=== PATIENT | male | born 1990 | race Caucasian/White ===

== ENCOUNTER 2016-11-07 15:04 | Emergency (ER) | payer SELFPAY ==
--- NOTE | 2016-11-07 17:43 | RADIOLOGY REPORT (SQ) ---
EXAM DESCRIPTION: CT LUMBAR SPINE WITH COMPLETED DATE/TIME: 11/07/2016 5:14 pm REASON FOR STUDY: painful mass lumbar area COMPARISON: None. TECHNIQUE: Axial images acquired through the lumbar spine with intravenous contrast. Contrast dose: 75 cc Isovue 370 low osmolar contrast. Renal function: Not needed. Patient is less than 50 years old. Images reviewed with lung, soft tissue and bone windows. Reconstructed coronal and sagittal MPR imag es reviewed. All images stored on PACS. All CT scanners at this facility use dose modulation, iterative reconstruction, and/or weight based d osing when appropriate to reduce radiation dose to as low as reasonably achievable (ALARA). [facility]: Dose Right [facility]: CareDose [facility]: Dose Right [facility]: Teradose 4D [facility]: [employer] RADIATION DOSE: Total exam DLP: [id number].cm LIMITATIONS: The location of the lumbar masses not indicated. FINDINGS: SEGMENTATION: Normal. No transitional anatomy. ALIGNMENT: Mild levoscoliosis in the upper lumbar spine. VERTEBRAL BODIES: No fractures. No dislocation. No acute findings. DISCS: There is a shallow circumferential disc bulge at L3-4. There is no central canal or foraminal stenosis. Shallow circumferential disc bulge at L4-5. Once again, no central canal or foraminal st enosis PEDICLES, TRANSVERSE PROCESSES: No fractures. No dislocation. No acute findings. FACETS, POSTERIOR ELEMENTS: No fractures. No dislocation. No spinal stenosis. HARDWARE: None in the spine. VISUALIZED RIBS: No fractures. SOFT TISSUES: There is a 21 x 49 mm fairly well-circumscribed fairly homogeneous fat density lesion t here is definable within the subcutaneous fat on the left. This is best seen on image 78 series 4. This is seen on coronal and sagittal images as well. OTHER: No other significant finding. IMPRESSION: 1. Mild circumferential disc bulging at 2 levels as described. 2. Likely lipoma in the subcutaneous fat on the left. Follow-up as clinically indicated. TECHNICAL DOCUMENTATION: JOB ID: [id number] Quality ID # [id number]: Final reports with documentation of one or more dose reduction techniques (e.g., Au tomated exposure control, adjustment of the mA and/or kV according to patient size, use of iterative reconstruction technique) 2010 [employer]- All Rights Reserved
--- NOTE | 2016-11-07 18:31 | ER Document Report ---
ED General - General Chief Complaint: Rash Stated Complaint: BACK AND HIP PAIN Time Seen by Provider: 11/07/16 15:30 TRAVEL OUTSIDE OF THE [place] IN LAST 30 DAYS: No - Related Data Allergies/Adverse Reactions: No Known Allergies Allergy (Verified 11/07/16 15:12) Past Medical History - Social History Smoking Status: Never Smoker Chew tobacco use (# tins/day): No Frequency of alcohol use: Rare Drug Abuse: None Family History: Reviewed & Not Pertinent Patient has suicidal ideation: No Patient has homicidal ideation: No Renal/ Medical History: Denies: Hx Peritoneal Dialysis Surgical Hx: Negative - Immunizations Hx Diphtheria, Pertussis, Tetanus Vaccination: Yes Physical Exam - Vital signs Vitals: Temp Pulse Resp BP Pulse Ox 98.5 F 102 H 16 147/80 H 97 11/07/16 15:15 11/07/16 15:15 11/07/16 15:15 11/07/16 15:15 11/07/16 15:15 Course - Re-evaluation Re-evalutation: 11/07/16 18:28 CT showing bulging discs at 2 levels and a lipoma. all results reviewed with patient. no neurologic deficits or red flags identified. will treat pain with short Rx for percocet and ibuprofen. pt stable for discharge - Vital Signs Vital signs: Temp Pulse Resp BP Pulse Ox 98.5 F 102 H 16 147/80 H 97 11/07/16 15:15 11/07/16 15:15 11/07/16 15:15 11/07/16 15:15 11/07/16 15:15 Discharge - Discharge Clinical Impression: Bulging lumbar disc, Lipoma of back Back pain Qualifiers: Back pain location: low back pain Chronicity: acute Back pain laterality: midline Sciatica presence: without sciatica Qualified Code(s): M54.5 - Low back pain Instructions: Low Back Pain ([facility]), Ibuprofen (General) ([facility]), Oral Narcotic Medication ([facility]) Additional Instructions: Your CT is showing bulging discs at L3 and L4 and subcutaneous Lipoma please follow up with spinal specialist for further evaluation and treatment of your back pain please follow up with a surgeon for removal of the lipoma take pain medication sparingly motrin for inflammation Prescriptions: Ibuprofen [Motrin 800 Mg Tablet] 800 mg PO Q6H #20 tablet Oxycodone HCl/Acetaminophen [Percocet 5-325 mg Tablet] 1 tab PO ASDIR PRN #15 tab PRN Reason:
[2016-11-07 18:43] VITALS: BP 165/102
== END 2016-11-07 18:43 | disposition home or self-care (01) ==
LOC: ER 15:04
DX: D17.1 Benign lipomatous neoplasm of skin and subcutaneous tissue of trunk (principal); M51.26 Other intervertebral disc displacement, lumbar region; M54.5 Low back pain; R21 Rash and other nonspecific skin eruption; M54.9 Dorsalgia, unspecified; M25.559 Pain in unspecified hip
CPT/HCPCS: 72132; 99283

== ENCOUNTER → 2017-01-31 | Outpatient (CLI) | payer OTHER ==
--- NOTE | 2017-01-31 15:26 | RADIOLOGY REPORT (SQ) ---
EXAM DESCRIPTION: WRIST LEFT 3 VIEWS COMPLETED DATE/TIME: 01/31/2017 1:54 pm REASON FOR STUDY: LEFT WRIST SPRAIN (S63.502A) S63.502A UNSPECIFIED SPRAIN OF LEFT WRIST, INITIAL E NCOUNTER COMPARISON: None. NUMBER OF VIEWS: Three views. TECHNIQUE: AP, lateral, and oblique radiographic images acquired of the left wrist. LIMITATIONS: None. FINDINGS: MINERALIZATION: Normal. BONES: No acute fracture or dislocation. No worrisome bone lesions. Normal alignment. Negative ulnar variance. . JOINTS: No erosions. No bela-articular osteopenia. No chondrocalcinosis. SOFT TISSUES: No swelling. No calcifications. OTHER: No other significant finding. IMPRESSION: No acute fracture. Negative ulnar variance. TECHNICAL DOCUMENTATION: JOB ID: [id number] [employer]- All Rights Reserved
== END ==
LOC: RAD 13:36
PROVIDERS: ATTEND Family Medicine
DX: S63.502A Unspecified sprain of left wrist, initial encounter (principal); X58.XXXA Exposure to other specified factors, initial encounter

== ENCOUNTER → 2017-05-17 | Outpatient (CLI) | payer OTHER ==
--- NOTE | 2017-05-17 16:10 | RADIOLOGY REPORT (SQ) ---
EXAM DESCRIPTION: SHOULDER LEFT 2 OR MORE VIEWS COMPLETED DATE/TIME: 05/17/2017 3:52 pm REASON FOR STUDY: M54.2 M54.2 CERVICALGIA M25.512 PAIN IN LEFT SHOULDER COMPARISON: None. NUMBER OF VIEWS: Three views. TECHNIQUE: Internal rotation, external rotation, and Y view images acquired of the left shoulder. LIMITATIONS: None. FINDINGS: MINERALIZATION: Normal. BONES: No acute fracture or dislocation. No worrisome bone lesions. JOINTS: No dislocation. VISUALIZED LUNGS AND RIBS: No pneumothorax. No rib fracture. SOFT TISSUES: No radiopaque foreign body. OTHER: No other significant finding. IMPRESSION: NEGATIVE STUDY OF THE LEFT SHOULDER. NO RADIOGRAPHIC EVIDENCE OF ACUTE INJURY. TECHNICAL DOCUMENTATION: JOB ID: [id number] [employer]- All Rights Reserved Reading location - IP/workstation name: [email or web address]
--- NOTE | 2017-05-17 16:14 | RADIOLOGY REPORT (SQ) ---
EXAM DESCRIPTION: CERV SP 4 OR 5 VIEWS COMPLETED DATE/TIME: 05/17/2017 3:52 pm REASON FOR STUDY: M54.2 CERVICALGIA M25.512 PAIN IN LEFT SHOULDER M54.2 CERVICALGIA M25.512 PAIN I N LEFT SHOULDER COMPARISON: None. NUMBER OF VIEWS: Five views. TECHNIQUE: AP, lateral, obliques and odontoid radiographic images acquired of the cervical spine. LIMITATIONS: None. FINDINGS: MINERALIZATION: Normal. ALIGNMENT: Anatomic. VERTEBRAE: Vertebral bodies of normal height. DISCS: Small osteophytes. FORAMINA: Mild narrowing of the lower cervical foramina due to small osteophytes. LATERAL AND POSTERIOR ELEMENTS: Facets, lateral masses and spinous processes without significant find ings. HARDWARE: None in the spine. SOFT TISSUES: No masses or calcifications. Lung apices clear. OTHER: No other significant finding. IMPRESSION: MILD DEGENERATIVE DISC DISEASE. NO ACUTE FINDINGS. TECHNICAL DOCUMENTATION: JOB ID: [id number] [employer]- All Rights Reserved Reading location - IP/workstation name: [email or web address]
== END ==
LOC: RAD 15:25
PROVIDERS: ATTEND Family Medicine
DX: M54.2 Cervicalgia (principal); M25.512 Pain in left shoulder
CPT/HCPCS: 72050

== ENCOUNTER → 2017-06-08 | Outpatient (CLI) | payer OTHER ==
--- NOTE | 2017-06-09 14:35 | RADIOLOGY REPORT (SQ) ---
EXAM DESCRIPTION: MRI CERVICAL SPINE WITHOUT COMPLETED DATE/TIME: 06/08/2017 3:39 pm REASON FOR STUDY: CERVICAL DISC DEGENERATION M50.30 OTHER CERVICAL DISC DEGENERATION, UNSP CERVICAL REGIO COMPARISON: None. TECHNIQUE: Sagittal and Axial imaging includes T1, T2, STIR and gradient echo sequences. LIMITATIONS: None. FINDINGS: ALIGNMENT: Normal. VERTEBRAE: Intact. BONE MARROW: Normal. No marrow replacement or reactive changes. DISCS: Desiccation multiple levels. HARDWARE: None in the spine. CORD AND BASE OF BRAIN: Normal in size and signal intensity. SOFT TISSUES: No soft tissue masses. C1-C2: No significant spinal stenosis. C2-C3: No significant spinal stenosis or exit foraminal stenosis. C3-C4: No significant spinal stenosis or exit foraminal stenosis. C4-C5: Disc bulge. No significant spinal stenosis or exit foraminal stenosis. C5-C6: Cord contact due to central small disc protrusion. Uncovertebral arthropathy. Moderate neura l foraminal narrowing bilaterally. C6-C7: Mild spinal stenosis due to disc bulge and ligament thickening. Mild neural foraminal narrowi ng bilaterally. C7-T1: No significant spinal stenosis or exit foraminal stenosis. UPPER THORACIC: Incompletely imaged. No significant spinal stenosis or exit foraminal stenosis. OTHER: No other significant finding. IMPRESSION: Central disc herniation C5-6. TECHNICAL DOCUMENTATION: JOB ID: [id number] [employer]- All Rights Reserved Reading location - IP/workstation name: [email or web address]
== END ==
LOC: RAD 14:52
PROVIDERS: ATTEND Family Medicine
DX: M50.30 Other cervical disc degeneration, unspecified cervical region (principal)
CPT/HCPCS: 72141

== ENCOUNTER → 2017-10-09 | Outpatient (CLI) | payer OTHER ==
--- NOTE | 2017-10-10 09:01 | RADIOLOGY REPORT (SQ) ---
EXAM DESCRIPTION: MRI LUMBAR SPINE WITHOUT COMPLETED DATE/TIME: 10/09/2017 8:13 pm REASON FOR STUDY: R29.898 OT SYMPTOMS AND SIGNS INVOLVING THE MUSCULOSKELETAL SYSTEM R29.898 OT S YMPTOMS AND SIGNS INVOLVING THE MUSCULOSKELETAL COMPARISON: None. TECHNIQUE: Sagittal and Axial imaging includes T1, T2, STIR and gradient echo sequences. Coronal T2/ HASTE imaging. LIMITATIONS: None. FINDINGS: VISUALIZED UPPER ABDOMEN: Limited evaluation. No acute or suspicious findings suggested. SEGMENTATION: No transitional anatomy. The lowest well-developed disc space is labeled L5-S1. ALIGNMENT: Anatomic. VERTEBRAE: Intact. BONE MARROW: Normal. No marrow replacement or reactive changes. DISC SIGNAL: Normal. No significant abnormal signal or loss of height. POSTERIOR ELEMENTS: Generally intact. No pars defect evident. HARDWARE: None in the spine. CORD AND CONUS: Normal in size and signal intensity. Conus at the T12-L1 level. SOFT TISSUES: No aortic aneurysm seen. No bulky retroperitoneal adenopathy or mass. No paraspinal mas s or fluid. T12-L1: At the upper edge of the field of view. Mild bilateral facet hypertrophy is present with mi ld bilateral foraminal narrowing. L1-L2: No central stenosis. Bulky bilateral facet and ligament hypertrophy is present with mild bila teral foraminal narrowing. L2-L3: Minimal posterior disc bulge, bulky bilateral facet and ligament hypertrophy. No central sten osis. Mild bilateral inferior foraminal narrowing is present. L3-L4: Minimal posterior disc bulging, bulky bilateral facet and ligament hypertrophy. Mild bilater al inferior foraminal narrowing. L4-L5: Minimal posterior disc bulging, bulky bilateral facet and ligament hypertrophy. Mild bilatera l inferior foraminal narrowing. L5-S1: Minimal posterior disc bulging, bulky bilateral facet and ligament hypertrophy. Mild bilatera l inferior foraminal narrowing. SACRUM: Visualized upper sacrum intact. OTHER: No other significant findings. IMPRESSION: Multilevel facet arthropathy with ligamentum flavum thickening and mild bilateral neural foraminal narrowing. No disc protrusion/herniation or high-grade central or foraminal encroachment. TECHNICAL DOCUMENTATION: JOB ID: [id number] [employer]- All Rights Reserved Reading location - IP/workstation name: [email or web address]
== END ==
LOC: RAD 18:56
PROVIDERS: ATTEND Family Medicine
DX: M48.07 Spinal stenosis, lumbosacral region (principal); R29.898 Other symptoms and signs involving the musculoskeletal system
CPT/HCPCS: 72148

== ENCOUNTER 2018-06-21 12:22 | Emergency (ER) | payer SELFPAY ==
[2018-06-21 12:32] VITALS: BP 165/87
[2018-06-21] MEDS ORDERED: CEPHALEXIN 500 MG CAPSULE PO ONE (12:46)
[2018-06-21] MEDS ORDERED: SULFAMETHOXAZOLE/TRIMETHOPRIM 800-160 MG TABLET PO ONE (12:46)
--- NOTE | 2018-06-21 12:47 | ER Document Report ---
ED Skin Rash/Insect Bite/Abscs - General Chief Complaint: Abscess Stated Complaint: POSSIBLE CYST Time Seen by Provider: 06/21/18 12:40 Primary Care Provider: LIZET FRANCO MD [NO LOCAL MD] - Follow up in 3-5 days Mode of Arrival: Ambulatory Information source: Patient Notes: 27-year-old male presented to ED for a bull draining to the area behind his scrotum. He states is been there for several days. He states he was using alcohol and peroxide and scrub in the area and now his skin feels like a spike and off and it is becoming more painful. He states it was draining in the past. He states he has had these multiple times before. It is alert oriented respirations regular and unlabored speaking in full sentences. Patient does walk with a cane due to history of chronic back and joint pain TRAVEL OUTSIDE OF THE [place] IN LAST 30 DAYS: No - HPI Patient complains to provider of: Tender/swollen area Onset: Other - Several days Onset/Duration: Gradual, Worse Quality of pain: Pressure, Sharp Severity: Moderate Pain Level: 3 Skin Character: Abscess - It self drained Quality of rash: Painful Identify cause: No Exacerbated by: Sitting, Movement, Walking Relieved by: Denies Similar symptoms previously: Yes Recently seen / treated by doctor: No - Related Data Allergies/Adverse Reactions: No Known Allergies Allergy (Verified 06/21/18 12:25) Past Medical History - General Information source: Patient - Social History Smoking Status: Former Smoker Chew tobacco use (# tins/day): No Frequency of alcohol use: None Drug Abuse: Marijuana Lives with: Family Family History: Reviewed & Not Pertinent Patient has suicidal ideation: No Patient has homicidal ideation: No - Past Medical History Cardiac Medical History: Reports: None Pulmonary Medical History: Reports: None EENT Medical History: Reports: None Neurological Medical History: Reports: None Endocrine Medical History: Reports: None Renal/ Medical History: Reports: None Malignancy Medical History: Reports None GI Medical History: Reports: None Musculoskeletal Medical History: Reports Hx Arthritis, Reports Hx Musculoskeletal Deformity, Reports Hx Musculoskeletal Trauma Skin Medical History: Reports Hx Cellulitis, Reports Other - Lipomas Psychiatric Medical History: Reports: Hx Anxiety, Hx Post Traumatic Stress Disorder Traumatic Medical History: Reports: Hx Fractures - Arm Infectious Medical History: Reports: None Surgical Hx: Negative Past Surgical History: Reports: None - Immunizations Hx Diphtheria, Pertussis, Tetanus Vaccination: Yes Review of Systems - Review of Systems Constitutional: No symptoms reported EENT: No symptoms reported Cardiovascular: No symptoms reported Respiratory: No symptoms reported Gastrointestinal: No symptoms reported Genitourinary: No symptoms reported Male Genitourinary: No symptoms reported Musculoskeletal: No symptoms reported Skin: Lesions - Behind the scrotum Hematologic/Lymphatic: No symptoms reported Neurological/Psychological: No symptoms reported -: Yes All other systems reviewed and negative Physical Exam - Vital signs Vitals: Temp Pulse Resp BP Pulse Ox 98.3 F 118 H 18 165/87 H 97 06/21/18 12:30 06/21/18 12:30 06/21/18 12:30 06/21/18 12:30 06/21/18 12:30 Interpretation: Normal - General General appearance: Appears well, Alert - HEENT Head: Normocephalic, Atraumatic Eyes: Normal Pupils: PERRL - Respiratory Respiratory status: No respiratory distress Chest status: Nontender Breath sounds: Normal Chest palpation: Normal - Cardiovascular Rhythm: Regular Heart sounds: Normal auscultation Murmur: No - Abdominal Inspection: Normal Distension: No distension Bowel sounds: Normal Tenderness: Nontender Organomegaly: No organomegaly - Back Back: Normal, Nontender - Extremities General upper extremity: Normal inspection, Nontender, Normal color, Normal ROM, Normal temperature General lower extremity: Normal inspection, Nontender, Normal color, Normal ROM, Normal temperature, Normal weight bearing. No: Kimber's sign - Neurological Neuro grossly intact: Yes Cognition: Normal Orientation: AAOx4 Hinckley Coma Scale Eye Opening: Spontaneous Nisha Coma Scale Verbal: Oriented Hinckley Coma Scale Motor: Obeys Commands Nisha Coma Scale Total: 15 Speech: Normal Motor strength normal: LUE, RUE, LLE, RLE Sensory: Normal - Psychological Associated symptoms: Normal affect, Normal mood - Skin Skin Temperature: Warm Skin Moisture: Dry Skin Color: Normal Skin irregularity: Abscess - Self draining Location of irregularity: Other - Between the scrotum and the anus Character of irregularity: Erythematous Irregularity with: Swelling, Tenderness, Inflammation, Weeping Course - Re-evaluation Re-evalutation: 06/21/18 14:16 Patient instructed to use Epson salt bath and prescribed Bactrim and Keflex. Patient was given instructions to return to ED for any increase in pain or swelling. Patient verbalized understanding and agreement with treatment plan and patient was discharged home. - Vital Signs Vital signs: Temp Pulse Resp BP Pulse Ox 98.3 F 110 H 18 165/87 H 97 06/21/18 12:30 06/21/18 12:38 06/21/18 12:30 06/21/18 12:30 06/21/18 12:30 Discharge - Discharge Clinical Impression: Abscess of groin, right Condition: Stable Disposition: HOME, SELF-CARE Additional Instructions: ABSCESS: You have an abscess (boil). This a pus-forming infection, usually due to staph. Some boils may be left to drain on their own, but most require lancing. From the time the tender lump first appears, it may be three or four days before the abscess is ready to jered. Local heat and rest help at this stage of treatment. An antibiotic may prevent spread of the infection. Once the abscess is opened, packing may be placed into it. This is done so pus is not sealed inside by premature closure of the cavity. The packing will be removed at your follow-up visit or you may be advised to remove it yourself at home. Sometimes this packing must be replaced a few times during healing. The wound will heal with surprisingly little scar. Depending on the size and location of an abscess, healing can take one to four weeks. You may shower and wash the area around the incision site two or three times a day. Antibiotics may be prescribed, but are usually not necessary after an abscess has been drained. If you develop fever, chills, worsening pain, or increasing swelling in the area, call the doctor or return immediately. CEPHALEXIN: The antibiotic you've been prescribed is a member of the cephalosporin class. This type of antibiotic covers a wide variety of infections, including those of the skin, lungs, and urinary tract. It's useful for staph infections. This antibiotic is slightly similar to the penicillin family. In rare cases, a person who is allergic to penicillin will also be allergic to this medication. If you have had a severe allergic reaction to penicillin, and have not taken this antibiotic since that time, notify your doctor. Antibiotics which cover many germs ("broad spectrum" antibiotics) are more likely to cause diarrhea or "yeast" infections. Women prone to vaginal yeast problems may suffer an attack after taking this antibiotic. In infants, oral thrush (white spots "stuck" on the cheek) or yeast diaper rash may result. See your doctor if these problems occur. Call at once if you develop itching, hives, shortness of breath, or lightheadedness. TRIMETHOPRIM-SULFA: You have been given a prescription for trimethoprim-sulfa (TMS, Septra, Bactrim). This is a combination antibiotic of the sulfa class, often used for urinary tract infections, middle ear infections, bronchitis, shigella intestinal infection, and Pneumocystis pneumonia. TMS is usually well-tolerated. Occasional side effects include nausea and decreased appetite. Septra is not recommended for infants less than two months of age. Do not take this medication if you have experienced severe side effects or allergy to sulfa medicine. You should stop this medicine at once and contact your physician if you develop any rash, joint pain, shortness of breath, bruising, or jaundice (yellow color in the skin), or if you develop any other new or unusual symptoms. Epsom Salt Soaks Soak the wound area in a container of warm epsom salt water. If you can't get the wound area into a bucket or romo, use a folded towel soaked in the epsom salt solution and apply to the area. Use clean hot tap water (about the temperature of a very warm bath), mixing in about one (1) teaspoon for every pint of water. Two gallon --> 16 teaspoons Epsom Salts One gallon --> 8 teaspoons Epsom Salts Two quarts --> 4 teaspoons Epsom Salts One quart --> 2 teaspoons Epsom Salts Soak the wound for about 20 minutes while gently moving it around in the water. Repeat this four (4) times a day. FOLLOW-UP CARE: Most simple abscesses will not require a follow up visit. If you had packing placed in the abscess, remove it as instructed by the physician. If you have been referred to a physician for follow-up care, call the physicians office for an appointment as you were instructed or within the next two days. If you experience worsening or a significant change in your symptoms, return to the Emergency Department at any time for re-evaluation. Prescriptions: Cephalexin Monohydrate [Keflex 500 mg Capsule] 500 mg PO Q6H 5 Days capsule Sulfamethoxazole/Trimethoprim [Bactrim Ds Tablet] 1 each PO BID #20 tablet Referrals: LIZET FRANCO MD [NO LOCAL MD] - Follow up in 3-5 days
== END 2018-06-21 12:53 | disposition home or self-care (01) ==
LOC: ER 12:22
DX: L02.214 Cutaneous abscess of groin (principal); Z87.891 Personal history of nicotine dependence
CPT/HCPCS: 99282

== ENCOUNTER → 2018-12-23 | Outpatient (CLI) | payer MEDICAID ==
--- NOTE | 2018-12-23 14:33 | RADIOLOGY REPORT (SQ) ---
EXAM DESCRIPTION: L SPINE WHOLE COMPLETED DATE/TIME: 12/23/2018 1:39 pm REASON FOR STUDY: M54.5 LOW BACK PAIN M54.5 LOW BACK PAIN M54.2 CERVICALGIA COMPARISON: None. NUMBER OF VIEWS: Five views including obliques. TECHNIQUE: AP, lateral, oblique, and sacral radiographic images acquired of the lumbar spine. LIMITATIONS: None. FINDINGS: MINERALIZATION: Normal. SEGMENTATION: Normal. No transitional anatomy. ALIGNMENT: Minimal levoscoliosis. VERTEBRAE: Maintained height. No fracture or worrisome bone lesion. DISCS: Preserved height. No significant osteophytes or end plate irregularity. POSTERIOR ELEMENTS: Mild hypertrophic facet changes at L5-S1. HARDWARE: None in the spine. PARASPINAL SOFT TISSUES: Normal. PELVIS: Intact as visualized. No fractures or worrisome bone lesions. SI joints intact. OTHER: No other significant finding. IMPRESSION: Minimal scoliosis. Facet arthropathy. No acute finding. TECHNICAL DOCUMENTATION: JOB ID: [id number] [employer]- All Rights Reserved Reading location - IP/workstation name: [email or web address]
--- NOTE | 2018-12-23 14:36 | RADIOLOGY REPORT (SQ) ---
EXAM DESCRIPTION: CERV SP 4 OR 5 VIEWS COMPLETED DATE/TIME: 12/23/2018 1:39 pm REASON FOR STUDY: M54.2 CERVICALGIA M54.5 LOW BACK PAIN M54.2 CERVICALGIA COMPARISON: None. NUMBER OF VIEWS: Five views. TECHNIQUE: AP, lateral, obliques and odontoid radiographic images acquired of the cervical spine. LIMITATIONS: None. FINDINGS: MINERALIZATION: Normal. ALIGNMENT: Anatomic. VERTEBRAE: Vertebral bodies of normal height. DISCS: Disc spaces are maintained. Anterior osteophytes are present at C3, C4, C5, and C6. FORAMINA: No osteophytes or foraminal narrowing. LATERAL AND POSTERIOR ELEMENTS: Facets, lateral masses and spinous processes without significant find ings. HARDWARE: None in the spine. SOFT TISSUES: No masses or calcifications. Lung apices clear. OTHER: No other significant finding. IMPRESSION: Spondylosis. No acute finding. TECHNICAL DOCUMENTATION: JOB ID: [id number] [employer]- All Rights Reserved Reading location - IP/workstation name: [email or web address]
== END ==
LOC: RAD 12:20
PROVIDERS: ATTEND Family Medicine
DX: M54.5 Low back pain (principal); M54.2 Cervicalgia
CPT/HCPCS: 72050; 72110

== ENCOUNTER → 2019-05-04 | Outpatient (CLI) | payer MEDICARE, MEDICAID ==
--- NOTE | 2019-05-04 17:49 | EKG REPORT ---
SEVERITY:- OTHERWISE NORMAL ECG - SINUS TACHYCARDIA : Confirmed by: Thong Perez MD 04-May-2019 17:48:45
== END ==
LOC: OD 15:25
PROVIDERS: ATTEND Surgery
DX: R94.31 Abnormal electrocardiogram [ECG] [EKG] (principal)
CPT/HCPCS: 93005; 93010

== ENCOUNTER 2019-05-08 11:30 | Day surgery (SDC) | payer MEDICARE, MEDICAID ==
[2019-05-01 08:43] LABS: HEMATOCRIT 43.5 % (37.9-51.0); HEMOGLOBIN 15.3 g/dL (13.5-17.0); MEAN CORPUSCULAR HEMOGLOBIN 28.8 pg (27.0-33.4); MEAN CORPUSCULAR HGB CONC 35.3 g/dL (32.0-36.0); MEAN CORPUSCULAR VOLUME 82 fl (80-97); PLATELET COUNT 246 10^3/uL (150-450); RED BLOOD COUNT 5.33 10^6/uL (4.35-5.55); RED CELL DISTRIBUTION WIDTH 14.4 % (11.5-14.0); WHITE BLOOD COUNT 8.8 10^3/uL (4.0-10.5)
[2019-05-01 09:02] LABS: ANION GAP 11 (5-19); BLOOD UREA NITROGEN 11 mg/dL (7-20); CALCIUM 9.4 mg/dL (8.4-10.2); CARBON DIOXIDE 24 mmol/L (22-30); CHLORIDE 105 mmol/L (98-107); GLUCOSE 173 mg/dL (75-110); POTASSIUM 4.3 mmol/L (3.6-5.0)
--- NOTE | 2019-05-01 09:29 | RADIOLOGY REPORT (SQ) ---
EXAM DESCRIPTION: CHEST PA/LATERAL COMPLETED DATE/TIME: 05/01/2019 9:13 am REASON FOR STUDY: PRE-OP, excision of low back lipoma COMPARISON: None. EXAM PARAMETERS: NUMBER OF VIEWS: two views TECHNIQUE: Digital Frontal and Lateral radiographic views of the chest acquired. RADIATION DOSE: NA LIMITATIONS: none FINDINGS: LUNGS AND PLEURA: No opacities, masses or pneumothorax. No pleural effusion. MEDIASTINUM AND HILAR STRUCTURES: No masses or contour abnormalities. HEART AND VASCULAR STRUCTURES: Heart normal size. No evidence for failure. BONES: No acute findings. Multilevel thoracic spondylosis. HARDWARE: None in the chest. OTHER: No other significant finding. IMPRESSION: NO SIGNIFICANT RADIOGRAPHIC FINDING IN THE CHEST. TECHNICAL DOCUMENTATION: JOB ID: [id number] 2010 [employer]- All Rights Reserved Reading location - IP/workstation name: [email or web address]
--- NOTE | 2019-05-01 13:54 | EKG REPORT ---
SEVERITY:- ABNORMAL ECG - ATRIAL FLUTTER/FIBRILLATION, A-RATE 309 : Confirmed by: Yoly Woodruff MD 01-May-2019 13:53:22
[~2019-05-08 11:30] MED LIST: ACETAMINOPHEN 1,000 MG/100 ML RTUPB IV PRN; BUPIVACAINE HCL 0.25 % INJ/PF (2.5 MG/1 ML) 30 ML VIAL ONE; CEFAZOLIN SODIUM 2 GM in DEXTROSE 5%-WATER 100 ML IV PRN; DEXAMETHASONE SOD PHOSPHATE INJ 4 MG/1 ML VIAL ONE; FENTANYL CITRATE INJ/PF 100 MCG/2 ML AMPUL ONE; IBUPROFEN 800 MG in NORMAL SALINE 250 ML IV PRN; LACTATED RINGERS 1000 ML IV PRN; LIDOCAINE 0.5% INJ-PF (5 MG/ML) 50 ML SDV SUBCUT PRN; MIDAZOLAM 2 MG/2 ML INJ ONE; ONDANSETRON HCL INJ/PF 4 MG/2 ML SDV ONE; PROPOFOL INJ 200 MG/20 ML VIAL IV ONE
[2019-05-08] MEDS ORDERED: BUPIVACAINE HCL 0.5 % INJ/PF 30 ML SDV ONE (12:31)
[2019-05-08] MEDS ORDERED: LIDOCAINE 1% INJ-PF (10 MG/ML) 30 ML SDV ONE ×2 (12:31→13:03)
[2019-05-08] MEDS ORDERED: DIPHENHYDRAMINE HCL 50 MG/ML VIAL IV PRN (14:05)
[2019-05-08] MEDS ORDERED: FENTANYL CITRATE INJ/PF 100 MCG/2 ML AMPUL IV PRN ×3 (14:05)
[2019-05-08] MEDS ORDERED: PROMETHAZINE HCL INJ 25 MG/1 ML VIAL IV PRN ×2 (14:05)
[2019-05-08] MEDS ORDERED: MEPERIDINE HCL/PF INJ 25 MG/1 ML DISP.SYRIN IV PRN (14:05)
[2019-05-08] MEDS ORDERED: ONDANSETRON HCL INJ/PF 4 MG/2 ML SDV IV PRN (14:05)
[2019-05-08] MEDS ORDERED: MORPHINE SULFATE 10 MG/ML INJ IV PRN (14:05)
--- NOTE | 2019-05-08 15:18 | Discharge Summary ---
Discharge Summary (SDC) - Discharge Final Diagnosis: Bilateral lower back lipomas Date of Surgery: 05/08/19 Discharge Date: 05/08/19 Condition: Stable Treatment or Instructions: Discharge home. Diet as tolerated. Activity as tolerated. No swimming pools or tub baths x2 weeks. Okay to shower starting Saturday. [place] 5/325 mg p.o. every 6 hours PRN for pain. Prescriptions: Hydrocodone/Acetaminophen [[place] 5-325 mg Tablet] 1 tab PO Q6HP PRN #20 tablet PRN Reason: Referrals: ELVIA TONEY DO [Primary Care Provider] - Discharge Diet: As Tolerated Respiratory Treatments at Home: Deep Breathing/Coughing, Incentive Spirometer Discharge Activity: Activity As Tolerated, Balance Activity w/Rest Home Care Assistance: None Needed Report the Following to Your Physician Immediately: Shortness of Breath, Nausea, Vomiting, Increase in Pain, Fever over 101 Degrees, Unusual Bleeding, Redness
[2019-05-08] MEDS: HYDROCODONE/ACETAMINOPHEN 5-325 MG TABLET ONE (16:10)
[2019-05-08] MEDS ORDERED: HYDROCODONE/ACETAMINOPHEN 5-325 MG TABLET PO PRN (16:47)
[2019-05-08 17:55] VITALS: BP 136/79
--- NOTE | 2019-05-12 12:08 | Operative Report ---
Nonrecallable Operative Report DATE OF SURGERY: 05/08/19 PREOPERATIVE DIAGNOSIS: Bilateral lower back lipomas POSTOPERATIVE DIAGNOSIS: Same as above OPERATION: 1. Excision of a 15 cm right lower back lipoma. 2. Intermediate closure of a 10 cm right back incision. 3. Excision of an 11 cm left lower back lipoma. 4. Intermediate closure of a 9 cm left lower back incision. SURGEON: BREN PENA ANESTHESIA: LMAC TISSUE REMOVED OR ALTERED: 1. 15 cm right lower back lipoma. 2. 11 cm left back lipoma COMPLICATIONS: None apparent ESTIMATED BLOOD LOSS: Minimal PROCEDURE: Drains/implants: None. Procedure in detail: After informed consent was obtained, the patient was brought to the operating room and laid in the right lateral decubitus position. The patient had a right lower back and a left lower back lipoma present. An incision was created over the lipoma. Dissection was carried through the subcutaneous tissues using a mixture of sharp dissection, blunt dissection, and electrocautery. The right lower back lipoma was removed in its entirety. It was approximately 15 cm in total diameter. After the mass was removed, hemostasis was achieved using electrocautery. Next, the subcutaneous tissues were closed using 3-0 Vicryl suture in simple running fashion. The overlying skin was closed using 4-0 Vicryl Rapide suture in subcuticular fashion. Attention was then turned to the left lower back. The left lower back lipoma was then excised using sharp dissection, blunt dissection, and electrocautery. The left lower back lipoma was removed and measured on the back table. It was 11 cm in maximal diameter. The 9 cm left lower back incision was then closed in layers. Subcutaneous tissues were closed using 3-0 Vicryl suture in simple running fashion. The overlying skin was closed using 4-0 Vicryl Rapide suture in subcuticular fashion. Dressings were placed, and the procedure was concluded. All sponge, instrument, and needle counts were correct x2. Condition: Stable.
== END 2019-05-08 17:23 | disposition home or self-care (01) ==
LOC: OROUT 11:30
PROVIDERS: ATTEND Surgery
DX: D17.1 Benign lipomatous neoplasm of skin and subcutaneous tissue of trunk (principal); Z79.899 Other long term (current) drug therapy; Z87.891 Personal history of nicotine dependence; E66.9 Obesity, unspecified
CPT/HCPCS: 93005; 36415; 85027; 80048; 88305 ×2; 71046; 93010; 21931; J2250; J0690; J1100; J3010; J3490; J2405; J7060; J7050; J2704; A9270; J1741; 300

== ENCOUNTER 2019-06-17 14:11 | Emergency (ER) | payer MEDICARE, MEDICAID ==
[2019-06-17] MEDS ORDERED: NORMAL SALINE 1000 ML 1,000 ML IV ONE (14:24)
--- NOTE | 2019-06-17 14:24 | ER Document Report ---
ED Medical Screen (RME) - General Chief Complaint: Skin Problem Stated Complaint: POST OF COMPLICATIONS Time Seen by Provider: 06/17/19 14:19 Primary Care Provider: ELVIA TONEY DO [Primary Care Provider] - Follow up as needed Mode of Arrival: Wheelchair Information source: Patient Notes: 28-year-old male patient presents emergency department chief complaint of fever, chills and swelling to his right lower back. Patient reports he had a lipoma removed from this area and is having increased swelling and pain. His surgery was in early May. He states he started having fevers 2 days ago. 2 incision lines noted to lower back, the one on the left is unremarkable, the one on the right has obvious swelling to it. No obvious drainage noted. I have greeted and performed a rapid initial assessment of this patient. A comprehensive ED assessment and evaluation of the patient, analysis of test results and completion of the medical decision making process will be conducted by additional ED providers. I have specifically instructed the patient or family members with the patient to immediately return to any nursing staff should anything change in the patient's condition or with their chief complaint. TRAVEL OUTSIDE OF THE [place] IN LAST 30 DAYS: No - Related Data Allergies/Adverse Reactions: gabapentin Adverse Reaction (Verified 05/08/19 12:40) MUSCLE SPASMS Past Medical History - Social History Chew tobacco use (# tins/day): No Frequency of alcohol use: None Drug Abuse: None - Past Medical History Cardiac Medical History: Denies: Hx Coronary Artery Disease, Hx Heart Attack, Hx Hypertension Pulmonary Medical History: Denies: Hx Asthma, Hx Bronchitis, Hx COPD, Hx Pneumonia Neurological Medical History: Denies: Hx Cerebrovascular Accident, Hx Seizures Renal/ Medical History: Denies: Hx Peritoneal Dialysis Musculoskeltal Medical History: Reports Hx Arthritis, Reports Hx Musculoskeletal Deformity, Reports Hx Musculoskeletal Trauma Skin Medical History: Reports Hx Cellulitis Psychiatric Medical History: Reports: Hx Anxiety, Hx Post Traumatic Stress Disorder Traumatic Medical History: Reports: Hx Fractures - Arm - Immunizations Hx Diphtheria, Pertussis, Tetanus Vaccination: Yes Physical Exam - Vital signs Vitals: Temp Pulse Resp BP Pulse Ox 99.5 F 124 H 20 149/98 H 98 06/17/19 14:17 06/17/19 14:17 06/17/19 14:17 06/17/19 14:17 06/17/19 14:17 Course - Vital Signs Vital signs: Temp Pulse Resp BP Pulse Ox 99.5 F 124 H 20 149/98 H 98 06/17/19 14:17 06/17/19 14:17 06/17/19 14:17 06/17/19 14:17 06/17/19 14:17 Doctor's Discharge - Discharge Referrals: ELVIA TONEY DO [Primary Care Provider] - Follow up as needed
[2019-06-17] MEDS ORDERED: ACETAMINOPHEN 325 MG TABLET PO ONE (14:52)
[2019-06-17 14:55] LABS: ABSOLUTE BASOPHILS # (AUTO) 0.1 10^3/uL (0.0-0.2); ABSOLUTE EOSINOPHILS # (AUTO) 0.4 10^3/uL (0.0-0.6); ABSOLUTE LYMPHOCYTES (AUTO) 2.5 10^3/uL (0.5-4.7); ABSOLUTE MONOCYTES (AUTO) 1.7 10^3/uL (0.1-1.4); ABSOLUTE NEUT (AUTO) 9.8 10^3/uL (1.7-8.2); EOSINOPHILS % (AUTO) 2.8 % (0-6); HEMATOCRIT 43.2 % (37.9-51.0); HEMOGLOBIN 15.1 g/dL (13.5-17.0); LYMPHOCYTES % (AUTO) 17.4 % (13-45); MEAN CORPUSCULAR HEMOGLOBIN 28.1 pg (27.0-33.4); MEAN CORPUSCULAR HGB CONC 35.1 g/dL (32.0-36.0); MEAN CORPUSCULAR VOLUME 80 fl (80-97); MONOCYTES % (AUTO) 11.6 % (3-13); PLATELET COUNT 243 10^3/uL (150-450); RED BLOOD COUNT 5.38 10^6/uL (4.35-5.55); RED CELL DISTRIBUTION WIDTH 14.7 % (11.5-14.0); SEGMENTED NEUTROPHILS % (AUTO) 67.2 % (42-78); TOTAL CELLS COUNTED % (AUTO) 100 %; WHITE BLOOD COUNT 14.6 10^3/uL (4.0-10.5)
[2019-06-17 15:12] LABS: ALBUMIN 4.3 g/dL (3.5-5.0); ALKALINE PHOSPHATASE 64 U/L (38-126); ANION GAP 10 (5-19); ASPARTATE AMINO TRANSFERASE 30 U/L (17-59); BILIRUBIN,TOTAL 1.4 mg/dL (0.2-1.3); BLOOD UREA NITROGEN 9 mg/dL (7-20); CALCIUM 9.1 mg/dL (8.4-10.2); CARBON DIOXIDE 22 mmol/L (22-30); CHLORIDE 104 mmol/L (98-107); GLUCOSE 97 mg/dL (75-110); POTASSIUM 3.8 mmol/L (3.6-5.0)
--- NOTE | 2019-06-17 15:19 | ER Document Report ---
Entered by CHRISTIAN ANGELES SCRIBE 06/17/19 0091 Acting as scribe for:JANIA PRICE DO ED General - General Chief Complaint: Skin Problem Stated Complaint: POST OF COMPLICATIONS Time Seen by Provider: 06/17/19 14:19 Primary Care Provider: BREN RICHARDSON MD [ACTIVE STAFF] - Follow up as needed ELVIA TONEY DO [Primary Care Provider] - Follow up as needed Mode of Arrival: Wheelchair Information source: Patient Notes: This 28-year-old male presents to the emergency department complaining of tenderness and pain in his right lower back incision. Patient explains that he had 5 lipomas removed from his lower back on May 07. Patient states that he has been having follow-up appointments with his physician. Patient states that h is last appointment was two days ago when they drained his left lower back incision. Patient explained the following night, he sweat in his sleep and noticed the next morning drainage from his right side bandage. Patient stated that when he took off the bandage, "it was like a wax strip and pulled my skin off". Patient said that since his surgery, he has had no sensation near his incision sight but felt significant pain after taking off the bandage yesterday. Patient said that he felt "heat across entire body". Patient had fevers and chills at this time. Patient reports headache. TRAVEL OUTSIDE OF THE [place] IN LAST 30 DAYS: No - Related Data Allergies/Adverse Reactions: gabapentin Adverse Reaction (Verified 05/08/19 12:40) MUSCLE SPASMS Past Medical History - General Information source: Patient - Social History Smoking Status: Former Smoker Cigarette use (# per day): No Chew tobacco use (# tins/day): No Frequency of alcohol use: None Drug Abuse: None Family History: Reviewed & Not Pertinent Patient has suicidal ideation: No Patient has homicidal ideation: No Musculoskeletal Medical History: Reports Hx Arthritis, Reports Hx Musculoskeletal Deformity, Reports Hx Musculoskeletal Trauma Skin Medical History: Reports Hx Cellulitis Psychiatric Medical History: Reports: Hx Anxiety, Hx Post Traumatic Stress Disorder Traumatic Medical History: Reports: Hx Fractures - Arm Past Surgical History: Reports: Other - 5 lipomas removed May 2019. - Immunizations Hx Diphtheria, Pertussis, Tetanus Vaccination: Yes Review of Systems - Review of Systems Constitutional: See HPI, Chills, Fever EENT: No symptoms reported Cardiovascular: No symptoms reported Respiratory: No symptoms reported Gastrointestinal: No symptoms reported Genitourinary: No symptoms reported Male Genitourinary: No symptoms reported Musculoskeletal: See HPI, Back pain Skin: See HPI, Change in color Hematologic/Lymphatic: No symptoms reported Neurological/Psychological: See HPI, Headaches -: Yes All other systems reviewed and negative Physical Exam - Vital signs Vitals: Temp Pulse Resp BP Pulse Ox 99.5 F 124 H 20 149/98 H 98 06/17/19 14:17 06/17/19 14:17 06/17/19 14:17 06/17/19 14:17 06/17/19 14:17 - Notes Notes: Physical Exam: General: Alert, appears well. HEENT: Normocephalic. Atraumatic. PERRL. Extraocular movements intact. Oropharynx clear. Neck: Supple. Non-tender. Respiratory: No respiratory distress. Clear and equal breath sounds bilaterally. Cardiovascular: Regular rate and rhythm. Abdominal: Normal Inspection. Non-tender. No distension. Normal Bowel Sounds. Back: Soft tissue swelling on right lower back with mild warmth to touch that is superior to the incision. Right incision is about 12cm and tender to touch. Left incision is non-tender and appears to be healing well. Extremities: Moves all four extremities. Upper extremities: Normal inspection. Normal ROM. Lower extremities: Normal inspection. No edema. Normal ROM. Neurological: Normal cognition. AAOx4. Normal speech. Psychological: Normal affect. Normal Mood. Skin: Warm. Dry. Normal color. see back comment. Course - Re-evaluation Re-evalutation: 06/17/19 16:31 MDM Pleasant 28 year old with right sided lipoma removal just over a month ago. Over the last day fever chills and drainage from right sided wound. Dr. Angeles is well informed on the pt and has come to see him in the Ed. He openned and drained some thick material from the right side and placed some packing and will see him in follow up 06/21. - Vital Signs Vital signs: Temp Pulse Resp BP Pulse Ox 99.3 F 124 H 18 165/90 H 97 06/17/19 16:00 06/17/19 14:17 06/17/19 16:00 06/17/19 15:00 06/17/19 16:00 - Laboratory Result Diagrams: 06/17/19 14:30 06/17/19 14:30 Laboratory results interpreted by me: 06/17/19 06/17/19 14:30 14:30 WBC 14.6 H RDW 14.7 H Absolute Neuts (auto) 9.8 H Absolute Monos (auto) 1.7 H Sodium 135.6 L Total Bilirubin 1.4 H Discharge - Discharge Clinical Impression: Abscess Condition: Good Disposition: HOME, SELF-CARE Instructions: Abscess ([facility]), Post Incision and Drainage, Trimethoprim-Sulfa ([facility]) Additional Instructions: Keep your follow up with Dr. Richardson 06/21. Take your medicine as directed. Tylenol or ibuprofen for pain/ fever. Please return here for problems or concerns including but not limited to increasing pain, fever not controlled by the medicine or other concerns. Your blood pressure was elevated a bit here. Be sure and have it rechecked. Forms: Elevated Blood Pressure Referrals: ELVIA TONEY DO [Primary Care Provider] - Follow up as needed BREN RICHARDSON MD [ACTIVE STAFF] - Follow up as needed I personally performed the services described in the documentation, reviewed and edited the documentation which was dictated to the scribe in my presence, and it accurately records my words and actions.
[2019-06-17 15:39] VITALS: BP 165/90
[2019-06-17] MEDS ORDERED: LIDOCAINE 1% INJ (10 MG/ML) 10 ML MDV INJ ONE (15:40)
[2019-06-17] MEDS ORDERED: HYDROMORPHONE HCL INJ/PF 2 MG/ML AMPULE IV ONE (15:41)
--- NOTE | 2019-06-17 15:42 | RADIOLOGY REPORT (SQ) ---
EXAM DESCRIPTION: CHEST SINGLE VIEW IMAGES COMPLETED DATE/TIME: 06/17/2019 3:21 pm REASON FOR STUDY: cough COMPARISON: 05/01/2019 EXAM PARAMETERS: NUMBER OF VIEWS: One view. TECHNIQUE: Single frontal radiographic view of the chest acquired. RADIATION DOSE: NA LIMITATIONS: None. FINDINGS: LUNGS AND PLEURA: No opacities, masses or pneumothorax. No pleural effusion. MEDIASTINUM AND HILAR STRUCTURES: No masses. Contour normal. HEART AND VASCULAR STRUCTURES: Heart normal in size. Normal vasculature. BONES: No acute findings. HARDWARE: None in the chest. OTHER: No other significant finding. IMPRESSION: NO ACUTE RADIOGRAPHIC FINDING IN THE CHEST. TECHNICAL DOCUMENTATION: JOB ID: [id number] 2010 [email or web address]- All Rights Reserved Reading location - IP/workstation name: [email or web address]
[2019-06-17] MEDS ORDERED: HYDROCODONE/ACETAMINOPHEN 5-325 MG (6 TAB/ER DISP) PO PRN (16:36)
--- NOTE | 2019-06-18 06:30 | PDOC CONSULTATION ---
Consultation Consult Date: 06/17/19 Provider Consulted: SURGICAL SURGICALIST MD Consult reason:: infected seroma History of Present Illness Admission Date/PCP: ELVIA TONEY DO Patient complains of: Fevers, chills, pain at previous surgical site. History of Present Illness: DOMONIQUE TATE is a 28 year old male seen in consultation at the request of the emergency room physician. This is a patient who had large lipomas removed from his bilateral lower back. The patient has been undergoing repeated aspirations in the office for seromas. The last aspiration that occurred was approximately 1 week ago. Since that time, the patient's pain and swelling have worsened. He reports of 102 F fever at home last night. He denies chest pain, shortness of breath, nausea, vomiting, abdominal pain, melena, hematochezia, hematemesis, dizziness. He does report headache, fevers, chills, fatigue, malaise, and back pain. Past Medical History Cardiac Medical History: Denies: Coronary Artery Disease, Myocardial Infarction, Hypertension Pulmonary Medical History: Denies: Asthma, Bronchitis, Chronic Obstructive Pulmonary Disease (COPD), Pneumonia Neurological Medical History: Denies: Seizures Musculoskeltal Medical History: Reports: Arthritis Psychiatric Medical History: Reports: Post Traumatic Stress Disorder Hematology: Denies: Anemia Past Surgical History Past Surgical History: Reports: Other - 2 lipomas removed May 2019. Social History Smoking Status: Former Smoker Electronic Cigarette use?: No Family History Family History: Reviewed & Not Pertinent Parental Family History Reviewed: Yes Children Family History Reviewed: Yes Sibling(s) Family History Reviewed.: Yes Medication/Allergy Home Medications: Cyclobenzaprine HCl [Flexeril 10 mg Tablet] 1 tab PO TID PRN 05/01/19 Meloxicam [Mobic] 1 tab PO DAILY 05/01/19 Hydrocodone/Acetaminophen [[place] 5-325 mg Tablet] 1 tab PO Q6HP PRN #20 tablet 05/08/19 Sulfamethoxazole/Trimethoprim [Bactrim Ds Tablet] 1 each PO BID #20 tablet 06/17/19 Allergies/Adverse Reactions: gabapentin Adverse Reaction (Verified 05/08/19 12:40) MUSCLE SPASMS Review of Systems Constitutional: PRESENT: chills, fever(s), headache(s). ABSENT: weakness Eyes: ABSENT: visual disturbances Ears: ABSENT: hearing changes Nose, Mouth, and Throat: ABSENT: sore throat Cardiovascular: ABSENT: chest pain Respiratory: ABSENT: cough, dyspnea Gastrointestinal: ABSENT: abdominal pain, hematemesis, hematochezia, melena, nausea, vomiting Genitourinary: ABSENT: dysuria Musculoskeletal: PRESENT: back pain Integumentary: PRESENT: erythema. ABSENT: pruritus Neurological: ABSENT: confusion, convulsions, dizziness Psychiatric: ABSENT: anxiety, depression Endocrine: ABSENT: cold intolerance, heat intolerance Hematologic/Lymphatic: ABSENT: easy bleeding, easy bruising Physical Exam Vital Signs: Temp Pulse Resp BP Pulse Ox 99.3 F 124 H 18 165/90 H 97 06/17/19 16:00 06/17/19 14:17 06/17/19 16:00 06/17/19 15:00 06/17/19 16:00 Intake & Output 06/16/19 06/17/19 06/18/19 06:59 06:59 06:59 Intake Total 1000 Balance 1000 Weight 179.7 kg General appearance: PRESENT: no acute distress, cooperative, obese Head exam: PRESENT: atraumatic, normocephalic Eye exam: PRESENT: EOMI, PERRLA. ABSENT: scleral icterus Mouth exam: PRESENT: moist, neck supple Neck exam: ABSENT: meningismus, tenderness, thyromegaly, tracheal deviation Respiratory exam: PRESENT: unlabored. ABSENT: tachypnea, wheezes Cardiovascular exam: ABSENT: tachycardia Vascular exam: PRESENT: normal capillary refill GI/Abdominal exam: PRESENT: soft. ABSENT: distended, guarding, rigid, tenderness Rectal exam: PRESENT: deferred Extremities exam: ABSENT: clubbing Musculoskeletal exam: ABSENT: deformity Neurological exam: PRESENT: alert, awake, oriented to person, oriented to place, oriented to time, oriented to situation, CN II-XII grossly intact Psychiatric exam: ABSENT: agitated, anxious, depressed Focused psych exam: ABSENT: delusional Skin exam: PRESENT: erythema - Right back, warm - Right back, other - Large, tense seroma of the right back with erythema and tenderness present. Results Laboratory Results: 06/17/19 14:30 06/17/19 14:30 06/17/19 06/17/19 06/17/19 14:30 14:30 15:00 WBC 14.6 H RBC 5.38 Hgb 15.1 Hct 43.2 MCV 80 MCH 28.1 MCHC 35.1 RDW 14.7 H Plt Count 243 Seg Neutrophils % 67.2 Sodium 135.6 L Potassium 3.8 Chloride 104 Carbon Dioxide 22 Anion Gap 10 BUN 9 Creatinine 0.72 Est GFR ( Amer) > 60 Glucose 97 Lactic Acid 1.3 Calcium 9.1 Total Bilirubin 1.4 H AST 30 Alkaline Phosphatase 64 Total Protein 8.0 Albumin 4.3 Impressions: Chest X-Ray 06/17/19 15:11 IMPRESSION: NO ACUTE RADIOGRAPHIC FINDING IN THE CHEST. Assessment & Plan - Diagnosis (1) Infected seroma, postoperative Is this a current diagnosis for this admission?: Yes - Plan Summary Plan Summary: This is a 28-year-old male status post large lipoma excisions of bilateral lower back. Patient has been undergoing percutaneous aspiration of his seromas in the office. I believe the patient has developed an infected seroma in the right lower back. The patient has fevers, chills, leukocytosis, erythema, and tenderness. I recommended incision and drainage of the infected seroma. The patient has agreed to this. Risks/benefits discussed, informed consent obtained, and all questions answered.
--- NOTE | 2019-06-18 06:33 | Operative Report ---
Nonrecallable Operative Report DATE OF SURGERY: 06/17/19 PREOPERATIVE DIAGNOSIS: Infected seroma of the right back POSTOPERATIVE DIAGNOSIS: Same as above OPERATION: Incision and drainage of infected seroma of the right lower back SURGEON: BREN PENA ANESTHESIA: Local TISSUE REMOVED OR ALTERED: None COMPLICATIONS: None apparent ESTIMATED BLOOD LOSS: Minimal PROCEDURE: Drains/implants: Kerlix packing. Procedure in detail: After informed consent was obtained from the patient, he was laid in the left lateral decubitus position. The area of the right lower back was prepped and draped in a normal sterile fashion. 1% lidocaine was used to anesthetize the area. Once adequate anesthesia was obtained, an 11 blade scalpel was used to open the patient's previous incision. A large, infected seroma was identified. The cavity was approximately 10 cm in total diameter. There was seropurulent fluid, as well as gelatinous purulent material. This was cleaned, and the wound was irrigated. The cavity was then packed with Kerlix. A dressing was placed, and the procedure was concluded. All sponge, instrument, and needle counts were correct x2. Condition: Stable.
== END 2019-06-17 16:43 | disposition home or self-care (01) ==
LOC: ER 14:11
PROC: 0H96XZZ Drainage of Back Skin, External Approach (ICD-10-PCS; principal; 2019-06-17)
DX: T81.41XA Infection following a procedure, superficial incisional surgical site, initial encounter (principal); L02.212 Cutaneous abscess of back [any part, except buttock and flank]; M54.5 Low back pain; Z88.8 Allergy status to other drugs, medicaments and biological substances; Z87.891 Personal history of nicotine dependence; Z98.890 Other specified postprocedural states
CPT/HCPCS: 99284; 96360; 36415; 87040; 83605; 85025; 87077; 80053; 87186; 87150 ×26; 71045; 10180; A9270 ×2; J1170; J7030

== ENCOUNTER → 2020-01-05 | Outpatient (CLI) | payer MEDICARE, MEDICAID ==
--- NOTE | 2020-01-05 11:37 | RADIOLOGY REPORT (SQ) ---
EXAM DESCRIPTION: T SPINE AP/LAT IMAGES COMPLETED DATE/TIME: 01/05/2020 11:25 am REASON FOR STUDY: RADICULOPATHY, THORACIC REGION M54.14 RADICULOPATHY, THORACIC REGION COMPARISON: None. NUMBER OF VIEWS: Two views. TECHNIQUE: AP and lateral radiographic images acquired of the thoracic spine. LIMITATIONS: None. FINDINGS: MINERALIZATION: Normal. ALIGNMENT: Normal. No scoliosis. VERTEBRAE: No fracture or suspicious osseous lesion. Maintained height. Multilevel flowing anterior osteophytes in the mid and lower thoracic spine. DISCS: Mild multilevel disc height loss with flowing osteophytes as above. HARDWARE: None in the spine. MEDIASTINUM AND SOFT TISSUES: Normal heart size and aortic contour. No soft tissue abnormality. VISUALIZED LUNG CORONA: Clear. OTHER: No other significant finding. IMPRESSION: No evidence of acute bony abnormality of the thoracic spine. Multilevel flowing bulky anterior osteophytes suggestive of DISH. TECHNICAL DOCUMENTATION: JOB ID: [id number] 2010 [employer]- All Rights Reserved Reading location - IP/workstation name: [email or web address]
== END ==
LOC: OD 10:31
PROVIDERS: ATTEND Family Medicine
DX: M54.14 Radiculopathy, thoracic region (principal)
CPT/HCPCS: 72070